=== PATIENT | female | born 1945 | race Caucasian/White ===

== ENCOUNTER 2017-03-09 10:32 | Emergency (ER) | payer MEDICARE ==
[~2017-03-09] VITALS: Ht 167.6 cm; Wt 72.3 kg
[2017-03-09 11:50] VITALS: BP 160/95
== END 2017-03-09 11:52 | disposition home or self-care (01) ==
LOC: ED 11:30
DX: S00.01XA Abrasion of scalp, initial encounter (principal); I10 Essential (primary) hypertension; F17.210 Nicotine dependence, cigarettes, uncomplicated; W13.8XXA Fall from, out of or through other building or structure, initial encounter; Y93.89 Activity, other specified; Y92.009 Unspecified place in unspecified non-institutional (private) residence as the place of occurrence of the external cause; Y99.9 Unspecified external cause status
CPT/HCPCS: 99283

== ENCOUNTER 2017-05-21 19:37 | Emergency (ER) | payer MEDICARE ==
[~2017-05-21] VITALS: Ht 167.6 cm; Wt 72.3 kg
[2017-05-21] MEDS ORDERED: OXYcodone/APAP 5/325MG TABLET ONE (20:29)
[2017-05-21] MEDS ORDERED: OXYcodone/APAP 5/325MG TABLET PO ONE (20:30)
[2017-05-21 20:56] VITALS: BP 119/78
== END 2017-05-21 21:17 | disposition home or self-care (01) ==
LOC: ED 21:00
DX: S52.125A Nondisplaced fracture of head of left radius, initial encounter for closed fracture (principal); I10 Essential (primary) hypertension; W18.30XA Fall on same level, unspecified, initial encounter; Y93.89 Activity, other specified; Y92.89 Other specified places as the place of occurrence of the external cause; Y99.9 Unspecified external cause status
CPT/HCPCS: 29105; 99284

== ENCOUNTER 2017-11-26 02:06 | Emergency (ER) | payer MEDICARE ==
[~2017-11-26] VITALS: Ht 170.2 cm; Wt 79.7 kg
[2017-11-26] MEDS ORDERED: DIPH,PERTUSS(ACELL),TET VAC/PF 0.5 ML IM-VACC ONE ×2 (02:40→03:00)
[2017-11-26] MEDS ORDERED: IBUPROFEN 200 MG TABLET ONE ×2 (02:40→02:45)
[2017-11-26] MEDS ORDERED: IBUPROFEN 200 MG TABLET PO ONE (03:00)
[2017-11-26 03:07] VITALS: BP 161/94
== END 2017-11-26 03:48 | disposition left against medical advice (07) ==
LOC: ED 03:36
DX: S51.851A Open bite of right forearm, initial encounter (principal); Y04.1XXA Assault by human bite, initial encounter; Y93.89 Activity, other specified; Y99.8 Other external cause status; Y92.89 Other specified places as the place of occurrence of the external cause
CPT/HCPCS: 90471; 90715

== ENCOUNTER 2019-11-11 12:15 | Emergency (ER) | payer MEDICARE ==
[~2019-11-11] VITALS: Ht 170.2 cm; Wt 81.1 kg
[2019-11-11 12:25] VITALS: BP 142/73
--- NOTE | 2019-11-11 12:46 | NUR ---
PT C/O LEFT HIP PAIN X1 MONTH. HX RIGHT HIP REPLACEMENT. PT AMBULATES WITH WALKER. AWAITING ORDERS AT THIS TIME
[2019-11-11] MEDS ORDERED: IBUPROFEN 600 MG TABLET PO ONE (13:00)
[2019-11-11] MEDS ORDERED: ACETAMINOPHEN 500 MG TABLET PO ONE (13:00)
[2019-11-11] MEDS ORDERED: ACETAMINOPHEN 500 MG TABLET ONE (13:12)
[2019-11-11] MEDS ORDERED: IBUPROFEN 600 MG TABLET ONE (13:12)
--- NOTE | 2019-11-11 13:15 | NUR ---
MEDS ADMIN PER JAN.
== END 2019-11-11 13:27 | disposition home or self-care (01) ==
LOC: ED 13:21
DX: M25.552 Pain in left hip (principal); G89.29 Other chronic pain; I10 Essential (primary) hypertension; F17.200 Nicotine dependence, unspecified, uncomplicated; Z96.643 Presence of artificial hip joint, bilateral
CPT/HCPCS: 99283

== ENCOUNTER 2019-12-07 09:03 | Emergency (ER) | payer MEDICARE ==
[~2019-12-07] VITALS: Ht 162.6 cm; Wt 63.6 kg
[2019-12-07 09:30] VITALS: BP 152/83
--- NOTE | 2019-12-07 10:41 | NUR ---
PT WC'D TO ROOM 10 W/ C/O CHRONIC HIP AND BACK PAIN. STATES SHE WANTED TO BE SEEN FOR IT. DENIES ANY RECENT INJURY/FALL. PT RESTING ON TIM. FARHANA.
--- NOTE | 2019-12-07 11:13 | NUR ---
REPORT GIVEN TO EDU KAUR
[2019-12-07] MEDS ORDERED: OXYcodone/APAP 5/325MG TABLET PO ONE (12:30)
[2019-12-07] MEDS ORDERED: OXYcodone/APAP 5/325MG TABLET ONE (13:11)
--- NOTE | 2019-12-07 14:09 | NUR ---
PT ABLE TO AMBULATE AROUND ROOM WITH WALKER. PT GIVEN A TAXI VOUCHER. PT DISCHARGED.
== END 2019-12-07 14:18 | disposition home or self-care (01) ==
LOC: ED 14:00
DX: M25.551 Pain in right hip (principal); G89.11 Acute pain due to trauma; M54.5 Low back pain; M51.36 Other intervertebral disc degeneration, lumbar region; I10 Essential (primary) hypertension; F17.200 Nicotine dependence, unspecified, uncomplicated; Z72.9 Problem related to lifestyle, unspecified
CPT/HCPCS: 72110; 99283

== ENCOUNTER 2019-12-19 21:16 | Emergency (ER) | payer MEDICARE ==
[~2019-12-19] VITALS: Ht 177.8 cm; Wt 81.8 kg
[2019-12-19 21:33] VITALS: BP 169/87
--- NOTE | 2019-12-19 21:43 | NUR ---
Pt here for left hip pain, Pt reports that she had new onset and normally comes into our ed every 10 14 days for a flare up of pain. Pt denies trauma. Is aware she needs to follow up with a surgeon but is unable to follow to get a hold of them. Pt bib ems.
[2019-12-19] MEDS ORDERED: HYDROmorphone 1 MG/ML, 1ML INJ ONE (21:45)
[2019-12-19] MEDS ORDERED: HYDROmorphone 1 MG/ML, 1ML INJ IM ONE (22:00)
--- NOTE | 2019-12-19 22:01 | NUR ---
Pt medicated per emar.
--- NOTE | 2019-12-19 23:23 | NUR ---
Patient/Caregiver given discharge instructions and they have confirmed that they understand the instructions. Patient ambulatory with steady gait.
== END 2019-12-19 23:24 | disposition home or self-care (01) ==
LOC: ED 23:00
DX: M25.552 Pain in left hip (principal); G89.29 Other chronic pain; M16.12 Unilateral primary osteoarthritis, left hip; I10 Essential (primary) hypertension; F17.200 Nicotine dependence, unspecified, uncomplicated
CPT/HCPCS: 72192; 96372; 99284; J1170; 99285

== ENCOUNTER 2020-01-03 10:58 | Observation (INO) | payer MEDICARE ==
[~2020-01-03] VITALS: Ht 167.6 cm; Wt 82.7 kg
--- NOTE | 2020-01-03 11:16 | NUR ---
BREAK RN: THIS IS A 74 YEAR OLD FEMALE WHO WAS BIB BY AMBULANCE DUE TO NAUSEA, HEADACHE, CP X 3 HOURS. PT PLACED ON SPECIAL EFFECTS ARTIST SINUS, SP02 AND CYCLE VS. PT STATES WALSH IS 05/17, EKG COMPLETED AT BS
[2020-01-03 11:37] LABS: BASOPHILS # (AUTO) 0.03 x10^3/uL (0-0.1); BASOPHILS % (AUTO) 0 % (0-1); EOSINOPHILS # (AUTO) 0.07 x10^3/uL (0-0.4); EOSINOPHILS % (AUTO) 1 % (1-7); LYMPHOCYTES # (AUTO) 2.12 x10^3/uL (1-3.4); LYMPHOCYTES % (AUTO) 25 % (22-44); MD NO; MEAN CORPUSCULAR HEMOGLOBIN 30.5 pg (27.0-34.8); MEAN CORPUSCULAR HGB CONC 34.1 g/dL (32.4-35.8); MEAN CORPUSCULAR VOLUME 89.3 fL (80-100); MONOCYTES # (AUTO) 0.67 x10^3/uL (0.2-0.8); MONOCYTES % (AUTO) 8 % (2-9); NEUTROPHILS % (AUTO) 66 % (42-75); PLATELET COUNT 301 x10^3/uL (130-400); RED BLOOD COUNT 4.88 x10^6/uL (3.82-5.3); RED CELL DISTRIBUTION WIDTH 13.3 % (9.6-15.2)
[2020-01-03 11:52] LABS: ALANINE AMINOTRANSFERASE 25 U/L (12-78); ALBUMIN 3.9 g/dL (3.4-5.0); CHLORIDE 109 mmol/L (98-107)
[2020-01-03 11:57] LABS: ALKALINE PHOSPHATASE 64 U/L (45-117); BILIRUBIN,TOTAL 0.3 mg/dL (0.2-1.0); CREATININE 0.78 mg/dL (0.55-1.02); TOTAL PROTEIN 7.1 g/dL (6.4-8.2); TROPONIN I < 0.015 ng/mL (0.000-0.045)
[2020-01-03] MEDS ORDERED: HYDROmorphone 2 MG/ML, 1ML IVPush PRN (12:00)
--- NOTE | 2020-01-03 12:01 | NUR ---
PT UPRIGHT ON GURNEY AWAKE & CALM, WATCHING TV, RESPONDS APPROP TO STAFF, COMFORT MEASURES PROVIDED, CALL LIGHT WITHIN REACH.
[2020-01-03 12:04] LABS: CALCIUM 9.1 mg/dL (8.5-10.1)
[2020-01-03 12:14] LABS: ANION GAP 7 mmol/L (5-15)
--- NOTE | 2020-01-03 13:05 | NUR ---
PT REMAINS UPRIGHT ON GURNEY AWAKE & COMFORTABLE, WATCHING TV, RESPONDS APPROP TO STAFF, NO NEEDS AT THIS TIME, CALL LIGHT WITHIN REACH.
[2020-01-03] MEDS ORDERED: amlodipine (13:06)
[2020-01-03] MEDS ORDERED: lisinopril (13:06)
[2020-01-03] MEDS ORDERED: levothyroxine (13:06)
[2020-01-03] MEDS ORDERED: fluoxetine (13:06)
--- NOTE | 2020-01-03 14:02 | NUR ---
PT UPRIGHT ON GURNEY AWAKE & COMFORTABLE, REQUESTING FOOD & WATCHING TV, RESPONDS APPROP TO STAFF, COMFORT MEASURES PROVIDED, CALL LIGHT WITHIN REACH.
[2020-01-03] MEDS ORDERED: morphine SULFATE 10 MG/ML, 1ML IVPush PRN (14:30)
[2020-01-03] MEDS ORDERED: ONDANSETRON 2MG/ML, 2ML IVPush PRN (14:30)
[2020-01-03] MEDS ORDERED: ACETAMINOPHEN 325 MG TABLET PO PRN (14:30)
[2020-01-03] MEDS ORDERED: hydrALAzine 20 MG/ML, 1ML IVPush PRN (14:30)
[2020-01-03] MEDS ORDERED: NITROGLYCERIN 0.4 MG BOTTLE (25 TABS) SL PRN (14:30)
[2020-01-03 15:00] LABS: ANION GAP 4 mmol/L (5-15); CALCIUM 9.4 mg/dL (8.5-10.1); CHLORIDE 109 mmol/L (98-107); CREATININE 0.78 mg/dL (0.55-1.02)
[2020-01-03 15:04] LABS: TROPONIN I < 0.015 ng/mL (0.000-0.045)
[2020-01-03] MEDS ORDERED: ENOXAPARIN 40 MG/0.4 ML ONE (15:17)
[2020-01-03] MEDS ORDERED: NICOTINE 21 MG/24 HR PATCH.TD24 ONE (15:17)
[2020-01-03] MEDS: NICOTINE 21 MG/24 HR PATCH.TD24 TD SCH (15:19)
[2020-01-03] MEDS: ENOXAPARIN 40 MG/0.4 ML SQ SCH (15:20)
[2020-01-03] MEDS ORDERED: PROPARACAINE OPHTH 0.5%, 15ML ONE (15:46)
[2020-01-03] MEDS ORDERED: FLUORESCEIN OPHTHALMIC 1 MG STRIP ONE (15:46)
--- NOTE | 2020-01-03 16:05 | NUR ---
PT REMAINS UPRIGHT ON GURNEY AWAKE & COMFORTABLE, WATCHING TV AFTER EATING DINNER, RESPONDS APPROP TO STAFF, COMFORT MEASURES PROVIDED, CALL LIGHT WITHIN REACH.
--- NOTE | 2020-01-03 17:00 | NUR ---
PT UPRIGHT ON GURNEY AWAKE & COMFORTABLE, WATCHING TV, RESPONDS APPROP TO STAFF, NO NEEDS AT THIS TIME, CALL LIGHT WITHIN REACH.
--- NOTE | 2020-01-03 17:01 | NUR ---
HOSPITAL BED REQUESTED
--- NOTE | 2020-01-03 17:22 | NUR ---
DINNER TRAY GIVEN
--- NOTE | 2020-01-03 18:00 | NUR ---
PT REMAINS UPRIGHT ON GURNEY AWAKE & COMFORTABLE, WATCHING TV AFTER EATING 2ND DINNER, RESPONDS APPROP TO STAFF, NO NEEDS AT THIS TIME, CALL LIGHT WITHIN REACH.
--- NOTE | 2020-01-03 18:56 | NUR ---
REPORT GIVEN TO SHADY
--- NOTE | 2020-01-03 18:57 | NUR ---
REPORT GIVEN TO LORI
--- NOTE | 2020-01-03 18:58 | NUR ---
BS REPORT OF PT FROM EDU POZO AND ASSUMING CARE OF PT AT THIS TIME.
[2020-01-03] MEDS ORDERED: HYDROmorphone 1 MG/ML, 1ML INJ ONE (19:50)
--- NOTE | 2020-01-03 20:11 | NUR ---
PT MEDICATED FOR PAIN PER MAR AT THIS TIME.
[2020-01-03 20:52] LABS: TROPONIN I < 0.015 ng/mL (0.000-0.045)
--- NOTE | 2020-01-03 21:45 | NUR ---
PT MEDICATED FOR ANXIETY PER MAR.
--- NOTE | 2020-01-04 00:01 | NUR ---
REPORT OF PT TO FLOOR AND TECH PAGED FOR TRANSPORT OF PT AT THIS TIME.
[2020-01-04 00:49] VITALS: BP 159/91
[2020-01-04 05:22] LABS: CHOL/HDL RATIO 4.6; LDL/HDL RATIO 2.4 (0.5-3.0)
[2020-01-04] MEDS ORDERED: LEVOTHYROXINE 100 MCG TABLET PO SCH (06:00)
[2020-01-04 06:55] VITALS: BP 120/73
[2020-01-04] MEDS ORDERED: FLUOXETINE HCL 20 MG CAPSULE PO SCH (09:00)
[2020-01-04] MEDS ORDERED: LISINOPRIL 10 MG TABLET PO SCH (09:00)
[2020-01-04] MEDS ORDERED: REGADENOSON 0.4 MG/5 ML SYRINGE ONE (09:40)
[2020-01-04 09:51] LABS: FREE T4 (FREE THYROXINE) 0.75 ng/dL (0.76-1.46)
[2020-01-04 13:49] VITALS: BP 121/77
[2020-01-04] MEDS: ENOXAPARIN 40 MG/0.4 ML SQ SCH (15:53)
[2020-01-04] MEDS: NICOTINE 21 MG/24 HR PATCH.TD24 TD SCH (15:53)
[2020-01-04] MEDS ORDERED: OMEP-110 PO (16:57)
== END 2020-01-04 18:29 | disposition home or self-care (01) ==
LOC: ED 12:04 → INTOOBSV 12:17 → EDIP 12:17 → 5SO 01-04 00:10
PROVIDERS: ADMIT Internal Medicine; ATTEND Internal Medicine
DX: R07.89 Other chest pain (principal); K21.9 Gastro-esophageal reflux disease without esophagitis; E03.9 Hypothyroidism, unspecified; F41.9 Anxiety disorder, unspecified; I10 Essential (primary) hypertension; D68.0 Von Willebrand disease; R51 Headache; Z72.0 Tobacco use; Z90.710 Acquired absence of both cervix and uterus; M16.12 Unilateral primary osteoarthritis, left hip
CPT/HCPCS: 36415; 71046; 78452; 80048; 80053; 80061; 83880; 84439; 84443; 84481; 84484; 85025; 93005; 93017; 96372; 96374; 99285; A9502; G0378; J1170; J1650; J2785

== ENCOUNTER 2020-01-13 08:10 | Emergency (ER) | payer MEDICARE ==
[~2020-01-13] VITALS: Ht 167.6 cm; Wt 80.0 kg
[~2020-01-13 08:10] MED LIST: OMEP-110 PO; amlodipine; fluoxetine; levothyroxine; lisinopril
--- NOTE | 2020-01-13 08:30 | NUR ---
butch. report received from ems. pt c/o left hip pain(chronic and waiting for surgery). pt might need SW d/t living situation. (pt doesn't want to talk about it in room now) pt's aox4. resps even and unlabored. pt denies any other symptoms. pa at bedside to evaluate at this time.
--- NOTE | 2020-01-13 08:45 | NUR ---
PT TO XRAY AT THIS TIME.
--- NOTE | 2020-01-13 08:53 | NUR ---
PT BACK TO ROOM FROM XRAY AT THIS TIME.
--- NOTE | 2020-01-13 08:57 | NUR ---
warm blancket given at this time.
[2020-01-13] MEDS ORDERED: ONDANSETRON ODT 4 MG ONE (08:59)
[2020-01-13] MEDS ORDERED: HYDROcodone/APAP 5/325 TABLET ONE (08:59)
[2020-01-13 09:02] VITALS: BP 125/80
--- NOTE | 2020-01-13 09:02 | NUR ---
PT MEDICATED PER EMAR. PT TOLERATED WELL. PT'S AOX4. RESPS EVEN AND UNLABORED.
[2020-01-13] MEDS ORDERED: IBUP100T PO (09:05)
[2020-01-13] MEDS ORDERED: ASPI-496 PO (09:05)
--- NOTE | 2020-01-13 09:55 | NUR ---
Patient given discharge instructions and they have confirmed that they understand the instructions.
[2020-01-13] MEDS ORDERED: ONDANSETRON ODT 4 MG PO ONE (10:00)
[2020-01-13] MEDS ORDERED: HYDROcodone/APAP 5/325 TABLET PO ONE (10:00)
== END 2020-01-13 09:56 | disposition home or self-care (01) ==
LOC: ED 08:57
DX: M16.12 Unilateral primary osteoarthritis, left hip (principal); I10 Essential (primary) hypertension; Z90.710 Acquired absence of both cervix and uterus; Z86.39 Personal history of other endocrine, nutritional and metabolic disease; X58.XXXA Exposure to other specified factors, initial encounter; Y93.89 Activity, other specified; Y92.009 Unspecified place in unspecified non-institutional (private) residence as the place of occurrence of the external cause; Y99.8 Other external cause status
CPT/HCPCS: 73502; 99283; Q0162

== ENCOUNTER 2020-03-25 18:14 | Emergency (ER) | payer MEDICARE ==
[~2020-03-25] VITALS: Ht 167.6 cm; Wt 88.2 kg
[~2020-03-25 18:14] MED LIST changes: +ASPI-496 PO; +IBUP100T PO
--- NOTE | 2020-03-25 18:56 | NUR ---
Report received from EDU Overton. This RN to assume care. Patient to be medicated and receive xrays.
[2020-03-25] MEDS ORDERED: CYCLOBENZAPRINE 10 MG TABLET ONE (18:58)
[2020-03-25] MEDS ORDERED: KETOROLAC 30 MG/1 ML ONE (18:58)
[2020-03-25] MEDS ORDERED: KETOROLAC 30 MG/1 ML IM ONE (19:00)
[2020-03-25] MEDS ORDERED: CYCLOBENZAPRINE 10 MG TABLET PO ONE (19:00)
--- NOTE | 2020-03-25 19:04 | NUR ---
Patient in xray
[2020-03-25 19:17] VITALS: BP 165/85
== END 2020-03-25 20:21 ==
LOC: ED 20:15
DX: M94.0 Chondrocostal junction syndrome [Tietze] (principal); M62.830 Muscle spasm of back; I10 Essential (primary) hypertension; Z86.39 Personal history of other endocrine, nutritional and metabolic disease
CPT/HCPCS: 71101; 96372; 99283; J1885

== ENCOUNTER 2020-07-07 17:49 | Emergency (ER) | payer MEDICARE ==
[~2020-07-07] VITALS: Ht 167.6 cm; Wt 91.3 kg
--- NOTE | 2020-07-07 18:33 | NUR ---
PT HAS LEFT LOWER DENTAL PAIN FOR 24 HOURS. STATES SHE NEEDS ANTIBIOTICS.
[2020-07-07] MEDS ORDERED: CLINDAMYCIN 300 MG CAPSULE PO ONE (19:30)
[2020-07-07] MEDS ORDERED: CLINDAMYCIN 300 MG CAPSULE ONE (19:37)
[2020-07-07 20:17] VITALS: BP 126/81
== END 2020-07-07 20:19 | disposition home or self-care (01) ==
LOC: ED 19:17
DX: K02.9 Dental caries, unspecified (principal); I10 Essential (primary) hypertension; Z90.710 Acquired absence of both cervix and uterus; F17.200 Nicotine dependence, unspecified, uncomplicated
CPT/HCPCS: 99283

== ENCOUNTER 2020-07-29 17:45 | Emergency (ER) | payer MEDICARE ==
[~2020-07-29] VITALS: Ht 167.6 cm; Wt 88.7 kg
[2020-07-29 18:47] LABS: BASOPHILS # (AUTO) 0.06 x10^3/uL (0-0.1); BASOPHILS % (AUTO) 1 % (0-1); EOSINOPHILS # (AUTO) 0.17 x10^3/uL (0-0.4); EOSINOPHILS % (AUTO) 2 % (1-7); LYMPHOCYTES % (AUTO) 27 % (22-44); MD NO; MEAN CORPUSCULAR HEMOGLOBIN 30.2 pg (27.0-34.8); MEAN CORPUSCULAR VOLUME 88.8 fL (80-100); MEAN PLATELET VOLUME 8.5 fL (7.4-10.4); MONOCYTES # (AUTO) 0.93 x10^3/uL (0.2-0.8); MONOCYTES % (AUTO) 9 % (2-9); NEUTROPHILS # (AUTO) 6.38 x10^3/uL (1.8-6.8); NEUTROPHILS % (AUTO) 62 % (42-75); PLATELET COUNT 313 x10^3/uL (130-400); RED BLOOD COUNT 4.93 x10^6/uL (3.82-5.3); RED CELL DISTRIBUTION WIDTH 13.1 % (9.6-15.2)
[2020-07-29 18:50] LABS: ALANINE AMINOTRANSFERASE 49 U/L (12-78); ANION GAP 7 mmol/L (5-15); CALCIUM 10.2 mg/dL (8.5-10.1); CHLORIDE 108 mmol/L (98-107); CREATININE 0.86 mg/dL (0.55-1.02)
[2020-07-29 18:54] LABS: ALKALINE PHOSPHATASE 68 U/L (45-117); BILIRUBIN,TOTAL 0.4 mg/dL (0.2-1.0); TOTAL PROTEIN 7.9 g/dL (6.4-8.2); TROPONIN I < 0.015 ng/mL (0.000-0.045)
--- NOTE | 2020-07-29 19:48 | NUR ---
FRUIT OR NUT CROPS FARM MANAGER: PT TO ROOM FROM LOBBY
--- NOTE | 2020-07-29 21:14 | NUR ---
Cassidy edwards in ED - 07/29/20 at [address] FOR CTA
--- NOTE | 2020-07-29 21:17 | NUR ---
PT RESTING IN WHEELCHAIR WITH PT FRIEND AT CHAIRSIDE. PT REFUSED TO SIT IN ER BED. PT A/O X4 AND ON MONITOR. PT HAS NO NEEDS OR WANTS AT THIS TIME. RN WILL CONTINUE TO MONITOR PT. PT MEDICATED PER EMAR.
[2020-07-29 21:36] VITALS: BP 128/78
== END 2020-07-29 22:42 | disposition home or self-care (01) ==
LOC: ED 21:11
DX: R60.0 Localized edema (principal); I44.7 Left bundle-branch block, unspecified; I10 Essential (primary) hypertension
CPT/HCPCS: 36415; 71045; 80053; 83880; 84484; 85025; 93005; 93970; 99285

== ENCOUNTER → 2020-09-27 | Outpatient (CLI) | payer MEDICARE ==
[~2020-09-27] MED LIST changes: +ANAS1TAB49 PO; +DEXA4TAB66 PO; +HYDR-3246 PO; -amlodipine; +amlodipine PO; -levothyroxine; +levothyroxine PO; -lisinopril; +lisinopril PO
== END | disposition home or self-care (01) ==
LOC: ROC 07:41
PROVIDERS: ATTEND Radiology Radiation Oncology
DX: C50.911 Malignant neoplasm of unspecified site of right female breast (principal); C79.51 Secondary malignant neoplasm of bone; I10 Essential (primary) hypertension; E03.9 Hypothyroidism, unspecified; M19.90 Unspecified osteoarthritis, unspecified site; Z17.0 Estrogen receptor positive status [ER+]; Z87.891 Personal history of nicotine dependence; Z79.899 Other long term (current) drug therapy; Z90.710 Acquired absence of both cervix and uterus; Z96.641 Presence of right artificial hip joint
CPT/HCPCS: 99214; G0463

== ENCOUNTER 2021-02-10 15:02 | Inpatient (IN) | payer MEDICARE ==
[~2021-02-10] VITALS: Ht 167.6 cm; Wt 96.0 kg
[~2021-02-10 15:02] MED LIST changes: -HYDR-3246 PO; +HYDR-3248 PO; -IBUP100T PO; +IBUP100T2 PO
--- NOTE | 2021-02-10 15:56 | NUR ---
N/V STARTING THIS AM. CHILLS, "SHE CAUGHT A COLD THAT I HAD A WEEK AND A HALF AGO." SECOND COVID VACCINE ABOUT TWO WEEKS AGO. PT STATES SHES HAD A CHEST COLD THE LAST WEEK AND NOT WANT TO EAT. PT ATTACHED TO MONITORS. VSS. DELCID.
[2021-02-10 17:07] LABS: MICROSCOPIC NOT IND
--- NOTE | 2021-02-10 17:17 | NUR ---
DR VALIENTE AT BEDSIDE FOR EVAULATION.
[2021-02-10] MEDS ORDERED: HYDROmorphone 1 MG/ML, 1ML INJ IV ONE ×2 (17:30→19:00)
[2021-02-10] MEDS ORDERED: ONDANSETRON 2MG/ML, 2ML IVPush ONE (17:30)
[2021-02-10] MEDS ORDERED: SODIUM CHLORIDE FLUSH 10ML SYR IVF ONE (17:30)
[2021-02-10] MEDS ORDERED: SODIUM CHLORIDE 0.9% 1,000ML IVBOLUS ONE (17:30)
[2021-02-10] MEDS ORDERED: HYDROmorphone 1 MG/ML, 1ML INJ ONE ×2 (17:39→19:01)
[2021-02-10] MEDS ORDERED: ONDANSETRON 2MG/ML, 2ML ONE (17:39)
[2021-02-10 18:00] LABS: BASOPHILS % (AUTO) 0 % (0-1); EOSINOPHILS % (AUTO) 0 % (1-7); LYMPHOCYTES % (AUTO) 10 % (22-44); MEAN CORPUSCULAR HEMOGLOBIN 31.5 pg (27.0-34.8); MEAN CORPUSCULAR HGB CONC 34.5 g/dL (32.4-35.8); MEAN PLATELET VOLUME 7.5 fL (7.4-10.4); MONOCYTES % (AUTO) 4 % (2-9); NEUTROPHILS % (AUTO) 85 % (42-75); PLATELET COUNT 324 x10^3/uL (130-400); RED BLOOD COUNT 5.14 x10^6/uL (3.82-5.3); RED CELL DISTRIBUTION WIDTH 14.1 % (9.6-15.2)
[2021-02-10 18:01] LABS: ALANINE AMINOTRANSFERASE 34 U/L (12-78); ALBUMIN 4.3 g/dL (3.4-5.0); ANION GAP 8 mmol/L (5-15); CALCIUM 10.4 mg/dL (8.5-10.1); CHLORIDE 100 mmol/L (98-107); CREATININE 1.18 mg/dL (0.55-1.02)
[2021-02-10 18:04] LABS: ALKALINE PHOSPHATASE 89 U/L (45-117); BILIRUBIN,TOTAL 0.4 mg/dL (0.2-1.0); INTERNATIONAL NORMALIZED RATIO 1.02 (0.93-1.1); MD NO; PROTHROMBIN TIME 10.9 Seconds (9.6-11.5); TOTAL PROTEIN 8.7 g/dL (6.4-8.2)
--- NOTE | 2021-02-10 18:22 | NUR ---
pt to ct via john
[2021-02-10] MEDS ORDERED: OMNIPAQUE 350 MG/ML, 100ML BOTTLE ONE (18:44)
--- NOTE | 2021-02-10 18:52 | NUR ---
report given to Deysi parikh.
--- NOTE | 2021-02-10 19:21 | NUR ---
PT STILL C/O 06/17 ABD PAIN. ERP NOTIFIED, ORDER RC'VD FOR ANOTHER DOSE OF DILAUDID AND PT MEDICATED PER ORDERS. PT REQUESTING ICE CHIPS, BUT INFORMED THAT SHE IS NPO PER ERP. UPDATED PT ON POC. CHART UP FOR RECHECK.
--- NOTE | 2021-02-10 20:45 | NUR ---
PT'S CAREGIVER IS "BEAR",
--- NOTE | 2021-02-10 20:46 | NUR ---
PT REPORTED SOME RELIEF OF ABD PAIN AFTER SECOND DOSE OF DILAUDID. CAREGIVER LEFT FOR THE NIGHT. PT REQUESTED SOMETHING TO EAT. OKAY PER ERP. PT TO BE TAKEN UPSTAIRS NOW. REPORTED TO RICHARD SORENSEN ON ONCOLOGY FLOOR.
[2021-02-10] MEDS ORDERED: MELATONIN 5 MG TABLET PO PRN (21:30)
[2021-02-10] MEDS ORDERED: DOCUSATE 100 MG CAPSULE PO PRN (21:30)
[2021-02-10] MEDS ORDERED: LIDODERM 5% PATCH TD PRN (21:30)
[2021-02-10] MEDS ORDERED: hydrALAzine 20 MG/ML, 1ML IVPush PRN (21:30)
[2021-02-10 21:40] VITALS: BP 154/74
[2021-02-11] MEDS: HYDROmorphone 2 MG/ML, 1ML IVPush PRN ×3 (00:20→13:41)
[2021-02-11] MEDS: PROMETHAZINE 25 MG/ML, 1ML IM PRN ×3 (02:11→09:15)
[2021-02-11 02:22] VITALS: BP 153/97
[2021-02-11 05:08] LABS: BASOPHILS % (AUTO) 1 % (0-1); EOSINOPHILS % (AUTO) 1 % (1-7); LYMPHOCYTES % (AUTO) 20 % (22-44); MEAN CORPUSCULAR HEMOGLOBIN 31.9 pg (27.0-34.8); MEAN PLATELET VOLUME 7.4 fL (7.4-10.4); MONOCYTES % (AUTO) 10 % (2-9); NEUTROPHILS % (AUTO) 69 % (42-75); PLATELET COUNT 275 x10^3/uL (130-400); RED BLOOD COUNT 4.56 x10^6/uL (3.82-5.3); RED CELL DISTRIBUTION WIDTH 13.7 % (9.6-15.2)
[2021-02-11 05:09] LABS: MD NO
[2021-02-11 05:17] LABS: ANION GAP 4 mmol/L (5-15); CALCIUM 9.1 mg/dL (8.5-10.1); CHLORIDE 107 mmol/L (98-107); CREATININE 0.99 mg/dL (0.55-1.02)
[2021-02-11 06:32] VITALS: BP 136/82
[2021-02-11] MEDS: ONDANSETRON ODT 4 MG PO PRN ×3 (08:00→21:19)
[2021-02-11 12:08] VITALS: BP 151/84
[2021-02-11] MEDS: POTASSIUM CHLORIDE 20 MEQ PACKET PO SCH (13:35)
[2021-02-11] MEDS: OMEPRAZOLE 20 MG CAPSULE.DR PO SCH (17:03)
[2021-02-11] MEDS ORDERED: MAALOX/HYOSCYAMINE/LIDOCAINE 45 ML BTL PO ONE (17:30)
[2021-02-11] MEDS ORDERED: METH5TAB2 PO (18:19)
[2021-02-11] MEDS ORDERED: HYDR25TA6 PO (18:20)
[2021-02-11] MEDS ORDERED: TRAZ-96 PO (18:21)
[2021-02-11] MEDS ORDERED: GABA300C PO (18:23)
[2021-02-11] MEDS ORDERED: FURO-93 PO (18:24)
[2021-02-11 19:52] VITALS: BP 124/77
[2021-02-11] MEDS: HYDROcodone/APAP 5/325 TABLET PO PRN (21:12)
[2021-02-12] MEDS: ONDANSETRON ODT 4 MG PO PRN (03:30)
[2021-02-12] MEDS: HYDROcodone/APAP 5/325 TABLET PO PRN (03:32)
[2021-02-12 03:45] VITALS: BP 144/85
[2021-02-12] MEDS ORDERED: MAALOX/HYOSCYAMINE/LIDOCAINE 45 ML BTL PO ONE (05:30)
[2021-02-12 05:40] LABS: BASOPHILS % (AUTO) 1 % (0-1); EOSINOPHILS % (AUTO) 1 % (1-7); LYMPHOCYTES % (AUTO) 22 % (22-44); MEAN CORPUSCULAR HEMOGLOBIN 31.6 pg (27.0-34.8); MEAN CORPUSCULAR HGB CONC 34.2 g/dL (32.4-35.8); MEAN PLATELET VOLUME 7.7 fL (7.4-10.4); MONOCYTES % (AUTO) 11 % (2-9); NEUTROPHILS % (AUTO) 66 % (42-75); PLATELET COUNT 268 x10^3/uL (130-400); RED BLOOD COUNT 4.51 x10^6/uL (3.82-5.3); RED CELL DISTRIBUTION WIDTH 13.7 % (9.6-15.2)
[2021-02-12 05:46] LABS: ALBUMIN 3.7 g/dL (3.4-5.0); ANION GAP 3 mmol/L (5-15); CALCIUM 9.3 mg/dL (8.5-10.1); CHLORIDE 107 mmol/L (98-107)
[2021-02-12 05:51] LABS: ALANINE AMINOTRANSFERASE 28 U/L (12-78); ALKALINE PHOSPHATASE 69 U/L (45-117); BILIRUBIN,TOTAL 0.4 mg/dL (0.2-1.0); MD NO; TOTAL PROTEIN 7.2 g/dL (6.4-8.2)
[2021-02-12] MEDS: OMEPRAZOLE 20 MG CAPSULE.DR PO SCH (06:27)
[2021-02-12 07:00] VITALS: BP 133/80
[2021-02-12] MEDS ORDERED: SUCRALFATE 1 GM/10 ML UDC PO SCH (07:00)
[2021-02-12] MEDS: POTASSIUM CHLORIDE 20 MEQ PACKET PO SCH (07:56)
[2021-02-12] MEDS ORDERED: AMLODIPINE 5 MG TABLET PO SCH (09:00)
[2021-02-12] MEDS ORDERED: ANASTROZOLE 1 MG TABLET PO SCH (09:00)
[2021-02-12] MEDS ORDERED: FLUOXETINE HCL 20 MG CAPSULE PO SCH (09:00)
[2021-02-12] MEDS ORDERED: LISINOPRIL 40 MG TABLET PO SCH (09:00)
[2021-02-12] MEDS ORDERED: LEVOTHYROXINE 112 MCG TABLET PO SCH (09:00)
[2021-02-12] MEDS ORDERED: OMEP-110 PO (09:28)
[2021-02-12] MEDS ORDERED: ONDA4TAB13 PO (09:28)
[2021-02-12] MEDS ORDERED: PROM25TA10 PO (09:28)
[2021-02-12] MEDS ORDERED: SUCR1ORA5 PO (09:28)
== END 2021-02-12 11:15 | disposition home or self-care (01) | DRG 392 ==
LOC: ED 17:41 → EDIP 20:42 → 4NW 20:49 → DCLOUNGE 02-12 11:10 → 4WST 02-12 11:24
PROVIDERS: ADMIT Internal Medicine; ATTEND Family Medicine
DX: R10.84 Generalized abdominal pain (principal); F11.23 Opioid dependence with withdrawal; C79.51 Secondary malignant neoplasm of bone; R11.2 Nausea with vomiting, unspecified; E03.9 Hypothyroidism, unspecified; C50.919 Malignant neoplasm of unspecified site of unspecified female breast; K21.9 Gastro-esophageal reflux disease without esophagitis; I10 Essential (primary) hypertension; E66.9 Obesity, unspecified; Z96.641 Presence of right artificial hip joint; F17.200 Nicotine dependence, unspecified, uncomplicated; F32.9 Major depressive disorder, single episode, unspecified; Z85.3 Personal history of malignant neoplasm of breast; Z90.49 Acquired absence of other specified parts of digestive tract; Z90.710 Acquired absence of both cervix and uterus; Z68.34 Body mass index [BMI] 34.0-34.9, adult
CPT/HCPCS: 36415; 71045; 74177; 80048; 80053; 81003; 83605; 83690; 83735; 85025; 85610; 93005; 96374; 96375; 99285; G0378; J1170; J2405; J2550; Q0162; Q9967; J7030

== ENCOUNTER 2021-02-21 10:53 | Outpatient (CLI) | payer MEDICARE ==
[~2021-02-21 10:53] MED LIST changes: +FURO-93 PO; +GABA300C PO; +HYDR25TA6 PO; +METH5TAB2 PO; +ONDA4TAB13 PO; +PROM25TA10 PO; +SUCR1ORA5 PO; +TRAZ-96 PO
== END 2021-02-21 23:59 | disposition home or self-care (01) ==
LOC: RAD 10:53
PROVIDERS: ATTEND Pathology Hematology
DX: C50.111 Malignant neoplasm of central portion of right female breast (principal)
CPT/HCPCS: 78306; A9503

== ENCOUNTER 2021-03-20 18:33 | Emergency (ER) | payer MEDICARE, MEDICAID ==
[~2021-03-20] VITALS: Ht 167.6 cm; Wt 92.6 kg
[~2021-03-20 18:33] MED LIST changes: -IBUP100T2 PO; +IBUP100T69 PO
--- NOTE | 2021-03-20 19:03 | NUR ---
PT. IS A & O X 4 WITH A GCS OF 15. PT. IS PINK, WARM AND DRY. RESPIRATIONS ARE EUPNEIC. PT. HAS EXSP WHEEZING NOTED IN BOTH UPPER LOBES. PT. IS A SMOKER. PT. HAS C/O RUNNING OUT OF HER METHADONE AND NORCO YESTERDAY. PT. IS TAKING METHADONE 5 MG TID AND NORCO 10 MG TID. PT. 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 PT.'S ABD. IS SOFT AND FLAT WITH BS + X 4 QUADS. PT. HAS +1 EDEMA IN HER LOWER LEGS. PT.'S PULSES ARE +2 THROUGHOUT. PT. HAS THE CP MONITOR IN PLACE. VSS. SIDERAILS ARE UP X 2 WITH THE CALL LIGHT IN PLACE. HOB IS ELEVATED GREATER THAN 30 DEGREES.
[2021-03-20] MEDS ORDERED: HYDROcodone/APAP 10/325 MG TABLET PO ONE (19:30)
[2021-03-20] MEDS ORDERED: HYDROcodone/APAP 10/325 MG TABLET ONE (19:32)
--- NOTE | 2021-03-20 20:21 | NUR ---
PT. REMOVED THE CP MONITORING EQUIPTMENT AND BP CUFF AND IS DRESSED. PT. WANTS TO LEAVE AFTER RECEIVING PAIN MEDS.
--- NOTE | 2021-03-20 20:23 | NUR ---
PT. STATE RELIEF FROM PAIN MEDS.
--- NOTE | 2021-03-20 20:27 | NUR ---
PT. WAS GIVEN DISCHARGE INSTRUCTIONS AND A SCRIPT WITH UNDERSTANDING VERBALIZED ALONG WITH WILLINGNESS TO COMPLY. PT. WAS TAKEN TO THE DISCHARGE DESK WITH HER SOFT METALS HAND ENGRAVER WHO IS DRIVING.
[2021-03-20 20:29] VITALS: BP 119/65
== END 2021-03-20 20:31 | disposition home or self-care (01) ==
LOC: ED 19:40
DX: Z85.3 Personal history of malignant neoplasm of breast (principal); Z76.0 Encounter for issue of repeat prescription; I10 Essential (primary) hypertension
CPT/HCPCS: 99283

== ENCOUNTER 2021-05-03 09:15 | Emergency (ER) | payer MEDICARE, MEDICAID ==
[~2021-05-03] VITALS: Ht 167.6 cm; Wt 98.3 kg
[~2021-05-03 09:15] MED LIST changes: +METH-648 PO; -METH5TAB2 PO
--- NOTE | 2021-05-03 10:22 | NUR ---
ERP IN TO SEE PT. PT PLACED ON BP CUFF, PULSE OX.
[2021-05-03 10:25] VITALS: BP 140/62
[2021-05-03 10:45] LABS: BASOPHILS % (AUTO) 1 % (0-1); EOSINOPHILS % (AUTO) 3 % (1-7); LYMPHOCYTES % (AUTO) 25 % (22-44); MEAN CORPUSCULAR HEMOGLOBIN 31.5 pg (27.0-34.8); MEAN PLATELET VOLUME 7.5 fL (7.4-10.4); MONOCYTES % (AUTO) 10 % (2-9); NEUTROPHILS % (AUTO) 61 % (42-75); PLATELET COUNT 230 x10^3/uL (130-400); RED BLOOD COUNT 4.24 x10^6/uL (3.82-5.3); RED CELL DISTRIBUTION WIDTH 13.7 % (9.6-15.2)
[2021-05-03 10:54] LABS: ALBUMIN 3.5 g/dL (3.4-5.0); ANION GAP 9 mmol/L (5-15); CALCIUM 8.9 mg/dL (8.5-10.1); CHLORIDE 106 mmol/L (98-107); CREATININE 0.88 mg/dL (0.55-1.02)
--- NOTE | 2021-05-03 11:00 | NUR ---
ALL RESULTS BACK, PT FOR RECHECK
== END 2021-05-03 12:14 | disposition home or self-care (01) ==
LOC: ED 09:35
DX: R60.0 Localized edema (principal); I10 Essential (primary) hypertension; M19.90 Unspecified osteoarthritis, unspecified site; F17.200 Nicotine dependence, unspecified, uncomplicated; Z85.3 Personal history of malignant neoplasm of breast
CPT/HCPCS: 36415; 80048; 82040; 85025; 99283

== ENCOUNTER → 2021-05-14 | Outpatient (CLI) | payer MEDICARE, MEDICAID ==
[~2021-05-14] MED LIST changes: -METH-648 PO; +METH5TAB2 PO; +OMNIPAQUE 350 MG/ML, 100ML BOTTLE ONE
== END | disposition home or self-care (01) ==
LOC: CFH 14:56
PROVIDERS: ATTEND Pathology Hematology
DX: C50.111 Malignant neoplasm of central portion of right female breast (principal)
CPT/HCPCS: 71260; Q9967